=== PATIENT | female | born 1985 | race Caucasian/White ===

== ENCOUNTER → 2021-05-27 18:45 | Observation (INO) ==
[2021-05-27 17:24] LABS: Basophils # 0.1 K/mcL (0.0-0.2); Basophils % 0.5 %; Eosinophils # 0.1 K/mcL (0.0-0.6); Eosinophils % 0.5 %; Hematocrit 26.5 % (35.3-44.9); Hemoglobin 8.2 g/dL (11.5-15.4); Lymphocytes # 1.3 K/mcL (0.6-4.6); Lymphocytes % 13.5 %; Mean Corpuscular HGB Conc 30.9 g/dL (31.6-35.5); Mean Corpuscular Volume 87.2 fL (83.0-100.0); Mean Platelet Volume 10.9 fL (9.4-12.4); Monocytes # 1.2 K/mcL (0.0-1.3); Monocytes % 12.2 %; Neutrophils # 6.8 K/mcL (1.6-8.9); Nucleated Red Blood Cells 0.2 /100 WBC (0); Platelet Count 210 K/mcL (140-400); Red Blood Count 3.04 M/mcL (3.82-4.97); Segmented Neutrophils % 71.3 %; White Blood Count 9.5 K/mcL (4.3-11.1)
[2021-05-27 17:32] LABS: Creatinine,Urine 9 mg/dL
[2021-05-27 17:39] LABS: Alanine Aminotransferase 12 Units/L (7-52); Aspartate Amino Transferase 16 Units/L (13-39); BUN/Creatinine Ratio 15 (6-26); Blood Urea Nitrogen 6 mg/dL (6-20); Lactate Dehydrogenase 163 Units/L (140-271); Uric Acid 4.3 mg/dL (2.3-7.6); eGFR For African Americans > 60 (> 60); eGFR For Non-African Americans > 60 (> 60)
== END | disposition home or self-care (01) ==
LOC: 1NENULAB
PROVIDERS: ADMIT Obstetrics & Gynecology; ATTEND Obstetrics & Gynecology

== ENCOUNTER 2021-06-28 07:59 | Inpatient (IN) ==
[2021-06-28] MEDS ORDERED: *HR* Nalbuphine 10 MG/ML AMPUL IV PRN (08:31)
[2021-06-28] MEDS ORDERED: Naloxone 0.4 MG/ML INJ IVP PRN (08:31)
[2021-06-28] MEDS ORDERED: Famotidine 20 MG/2 ML VIAL IVP PRN (08:31)
[2021-06-28] MEDS ORDERED: Ondansetron 4 MG/2 ML VIAL IVP PRN (08:31)
[2021-06-28] MEDS ORDERED: Azithromycin 500 MG in 0.9 % Sodium Chloride 250 ML IVPB PRN (08:31)
[2021-06-28] MEDS ORDERED: Metoclopramide 10 MG/2 ML VIAL IVP PRN (08:31)
[2021-06-28] MEDS ORDERED: Ringers Solution, Lactated 1,000 ML IVC SCH (08:45)
[2021-06-28] MEDS ORDERED: miSOPROStoL 25 MCG TABLET PO PRN (10:26)
[2021-06-28 10:49] LABS: Hematocrit 32.3 % (35.3-44.9); Hemoglobin 10.1 g/dL (11.5-15.4); Immature Granulocytes % 1.6 % (0-4); Lymphocytes # 1.3 K/mcL (0.6-4.6); Lymphocytes % 18.4 %; Mean Corpuscular HGB Conc 31.3 g/dL (31.6-35.5); Mean Corpuscular Hemoglobin 27.2 pg (28.0-33.3); Mean Corpuscular Volume 86.8 fL (83.0-100.0); Mean Platelet Volume 11.9 fL (9.4-12.4); Monocytes # 0.8 K/mcL (0.0-1.3); Monocytes % 10.8 %; Neutrophils # 4.8 K/mcL (1.6-8.9); Platelet Count 232 K/mcL (140-400); Red Blood Count 3.72 M/mcL (3.82-4.97); Red Cell Distribution Width 17.6 % (11.5-14.5); Segmented Neutrophils % 68.5 %
[2021-06-28 10:50] LABS: Basophils % 0.4 %; Eosinophils % 0.3 %
[2021-06-28 11:27] LABS: Amphetamine Screen,Urine Negative ng/mL (Cutoff=1000); Barbiturate Screen,Urine Negative ng/mL (Cutoff=200); Benzodiazepines Screen,Urine Negative ng/mL (Cutoff=200); Cannabinoid Screen,Urine Negative ng/mL (Cutoff = 50); Cocaine Screen,Urine Negative ng/mL (Cutoff= 300); Opiate Screen,Urine Negative ng/mL (Cutoff=300); Phencyclidine Screen,Urine Negative ng/mL (Cutoff=25)
[2021-06-28 12:05] LABS: Influenza A PCR Negative (Negative); Influenza B PCR Negative (Negative); Resp. Syncytial Virus PCR Negative (Negative); SARS-CoV-2 by PCR (In House) Negative (Negative)
[2021-06-28] MEDS ORDERED: *HR* FentaNYL (PF) 100 MCG/2 ML VIAL EP ONE (13:48)
[2021-06-28] MEDS ORDERED: EPHEDrine 50 MG/ML VIAL IVP PRN (13:48)
[2021-06-28] MEDS ORDERED: Ropivacaine/PF 0.2% 20 ML VIAL EP ONE (13:48)
[2021-06-28] MEDS ORDERED: Ropivacaine/PF 0.2% 20 ML VIAL ONE (13:53)
[2021-06-28] MEDS ORDERED: Epidural Premix (fent/bupiv) 110 ML EP SCH (14:00)
[2021-06-28] MEDS ORDERED: Measles/Mumps/Rubella Vacc 0.5 ML VIAL SQ PRN (17:33)
[2021-06-28] MEDS ORDERED: Oxytocin 20 units/ LR 1000 mL 20 UNIT/1,000 ML BAG IVC SCH (17:33)
[2021-06-28] MEDS ORDERED: Acetaminophen 325 MG TABLET PO PRN (17:33)
[2021-06-28] MEDS ORDERED: Rho Immune Globulin 1,500 UNIT SYRINGE IM PRN (17:33)
[2021-06-28] MEDS: Ibuprofen 600 MG TABLET PO PRN (21:02)
[2021-06-28] MEDS ORDERED: Benzocaine/Menthol 56 GM AEROSOL SPRAY TP PRN (21:03)
[2021-06-29 05:10] LABS: Basophils % 0.2 %; Eosinophils % 0.3 %; Hematocrit 25.9 % (35.3-44.9); Lymphocytes # 1.5 K/mcL (0.6-4.6); Lymphocytes % 13.3 %; Mean Corpuscular HGB Conc 30.9 g/dL (31.6-35.5); Mean Corpuscular Hemoglobin 27.3 pg (28.0-33.3); Mean Corpuscular Volume 88.4 fL (83.0-100.0); Mean Platelet Volume 11.3 fL (9.4-12.4); Monocytes # 1.2 K/mcL (0.0-1.3); Monocytes % 10.5 %; Neutrophils # 8.7 K/mcL (1.6-8.9); Platelet Count 197 K/mcL (140-400); Red Blood Count 2.93 M/mcL (3.82-4.97); Red Cell Distribution Width 17.4 % (11.5-14.5); Segmented Neutrophils % 74.7 %; White Blood Count 11.6 K/mcL (4.3-11.1)
[2021-06-29 08:20] VITALS: BP 111/77; PULSE 91; TEMP 97.8; O2SAT 98
[2021-06-29] MEDS: Ibuprofen 600 MG TABLET PO PRN (08:40)
[2021-06-29] MEDS ORDERED: Prenatal Vit/FA 1 EACH TABLET PO SCH (09:00)
== END 2021-06-29 17:07 | disposition home or self-care (01) | DRG 806 ==
LOC: 1NENULAB 07:59 → 1NENUOBS 19:13
PROVIDERS: ADMIT Obstetrics & Gynecology; ATTEND Obstetrics & Gynecology